=== PATIENT | female | born 1985 | race Caucasian/White ===

== ENCOUNTER 2020-03-20 09:19 | Emergency (ER) | payer SELFPAY ==
[~2020-03-20] VITALS: Ht 165.1 cm; Wt 67.3 kg
[2020-03-20] MEDS ORDERED: ONDANSETRON 2MG/ML, 2ML IVPush ONE (09:30)
[2020-03-20] MEDS ORDERED: SODIUM CHLORIDE FLUSH 10ML SYR IVF ONE (09:30)
--- NOTE | 2020-03-20 09:40 | NUR ---
PT TO US
[2020-03-20 09:42] LABS: BASOPHILS % (AUTO) 1 % (0-1); EOSINOPHILS % (AUTO) 2 % (1-7); LYMPHOCYTES % (AUTO) 34 % (22-44); MEAN CORPUSCULAR HGB CONC 31.8 g/dL (32.4-35.8); MEAN PLATELET VOLUME 9.1 fL (7.4-10.4); MONOCYTES % (AUTO) 7 % (2-9); NEUTROPHILS % (AUTO) 57 % (42-75); PLATELET COUNT 269 x10^3/uL (130-400); RED BLOOD COUNT 4.12 x10^6/uL (3.82-5.3); RED CELL DISTRIBUTION WIDTH 15.7 % (9.6-15.2)
[2020-03-20 09:43] LABS: MD NO
[2020-03-20] MEDS ORDERED: ONDANSETRON 2MG/ML, 2ML ONE (09:52)
[2020-03-20] MEDS ORDERED: MORPHINE SULFATE 4 MG/ML, 1ML ONE ×2 (09:52→11:16)
[2020-03-20] MEDS: MORPHINE SULFATE 4 MG/ML, 1ML IVPush PRN ×2 (10:02→11:18)
[2020-03-20 11:21] VITALS: BP 119/77
[2020-03-20] MEDS ORDERED: MORPHINE SULFATE 4 MG/ML, 1ML IVPush ONE (11:30)
== END 2020-03-20 11:59 | disposition home or self-care (01) ==
LOC: ED 10:27
DX: R10.2 Pelvic and perineal pain (principal); N93.9 Abnormal uterine and vaginal bleeding, unspecified; M54.5 Low back pain; E11.9 Type 2 diabetes mellitus without complications
CPT/HCPCS: 36415; 76830; 84702; 85025; 86850; 86900; 96374; 96375; 96376; 99284; J2270; J2405